=== PATIENT | female | born 1995 | race Caucasian/White ===

== ENCOUNTER 2017-10-27 08:19 | Emergency (ER) | payer MEDICAID ==
[~2017-10-27] VITALS: Ht 167.6 cm; Wt 110.4 kg
[2017-10-27 08:22] VITALS: BP 131/83
[2017-10-27] MEDS ORDERED: DEXAMETHASONE 4 MG TABLET ONE (09:26)
[2017-10-27] MEDS ORDERED: BICILLIN-LA 1,200,000 UNITS/2 ML IM ONE (09:30)
[2017-10-27] MEDS ORDERED: DEXAMETHASONE 4 MG TABLET PO ONE (09:30)
== END 2017-10-27 10:12 | disposition home or self-care (01) ==
LOC: ED 09:10
DX: J02.0 Streptococcal pharyngitis (principal)
CPT/HCPCS: 96372; 99283; J0561

== ENCOUNTER 2017-11-06 19:13 | Emergency (ER) | payer MEDICAID ==
[~2017-11-06] VITALS: Ht 167.6 cm; Wt 113.0 kg
[2017-11-06 20:03] LABS: CLUE CELLS NONE SEEN (NONE SEEN); WET PREP WBCS FEW (FEW)
[2017-11-06 20:09] LABS: HCG UR SG 1.024 (1.003-1.030); MICROSCOPIC AUTO
[2017-11-06 20:10] LABS: CULTURE INDICATED? NO
[2017-11-06 20:28] VITALS: BP 125/78
== END 2017-11-06 20:44 | disposition home or self-care (01) ==
LOC: ED 20:27
DX: B37.3 Candidiasis of vulva and vagina (principal)
CPT/HCPCS: 81001; 81025; 87210; 87491; 87591; 87808; 99284

== ENCOUNTER 2018-04-27 07:12 | Emergency (ER) | payer MEDICAID, OTHER ==
[~2018-04-27] VITALS: Ht 167.6 cm; Wt 112.9 kg
[2018-04-27 07:14] VITALS: BP 119/71
[2018-04-27] MEDS ORDERED: DEXAMETHASONE 4 MG TABLET PO ONE (07:30)
[2018-04-27] MEDS ORDERED: DEXAMETHASONE 4 MG TABLET ONE (07:36)
== END 2018-04-27 08:30 | disposition home or self-care (01) ==
LOC: ED 08:15
DX: J02.0 Streptococcal pharyngitis (principal)
CPT/HCPCS: 87081; 87147; 87880; 99284

== ENCOUNTER 2018-08-26 15:50 | Emergency (ER) | payer SELFPAY ==
[~2018-08-26] VITALS: Ht 167.6 cm; Wt 118.2 kg
[2018-08-26 16:13] VITALS: BP 128/81
--- NOTE | 2018-08-26 16:47 | NUR ---
22 Y/O FEMALE PRESENTS TO ED WITH C/O TEST. PT STATES "I TOOK TWO TESTS YESTERDAY AND THEY WERE POSITIVE. I JUST WANT TO MAKE SURE. I HAVEN'T HAD ANY CRAMPING OR BLEEDING." NO ACUTE DISTRESS NOTED.
--- NOTE | 2018-08-26 16:48 | NUR ---
Patient/Caregiver given discharge instructions and they have confirmed that they understand the instructions. Patient ambulatory with steady gait. PT LEFT WITH ALL PERSONAL BELONGINGS.
== END 2018-08-26 16:55 | disposition home or self-care (01) ==
LOC: ED 16:46
DX: O26.891 Other specified pregnancy related conditions, first trimester (principal); R79.9 Abnormal finding of blood chemistry, unspecified; Z3A.01 Less than 8 weeks gestation of pregnancy
CPT/HCPCS: 99281